=== PATIENT | male | born 1975 | race Caucasian/White ===

== ENCOUNTER 2016-04-24 16:15 | Outpatient (CLI) | payer BC ==
[2016-04-24 17:22] LABS: #Basophils 0.1 thou/uL (0.0-0.2); #Eosinphils 0.4 thou/uL (0.0-0.7); #Monocytes 0.7 thou/uL (0.11-0.59); #Neutrophils 4.9 thou/uL (1.40-6.50); %Eosinophils 5.9 % (0.0-10.0); %Monocytes 10.3 % (0.0-10.0); Hematocrit 44.1 % (42.0-52.0); Mean Platelet Volume 9.4 fL (7.4-10.4); Red Blood Cell (RBC) Count 4.89 mill/uL (4.70-6.10); White Blood Cell (WBC) Count 7.1 thou/uL (4.8-10.8)
[2016-04-24 17:23] LABS: Prothrombin Time 17.8 SEC (12.0-14.7)
[2016-04-24 18:29] LABS: ALT (SGPT) 22 U/L (0-55); AST (SGOT) 20 U/L (5-34); Alkaline Phosphatase 68 U/L (40-150); Anion Gap 15 mmol/L (10-20); BUN (Urea Nitrogen) 14 mg/dL (8.9-20.6); Bilirubin, Total 0.9 mg/dL (0.2-1.2); Calc. Creatinine Clearance 0 mL/min (70-130); Calcium 9.3 mg/dL (7.8-10.44); Carbon Dioxide 26 mmol/L (22-29); Chloride 105 mmol/L (98-107); Estimated GFR-MDRD 89; Globulin 2.3 g/dL (2.4-3.5); LDL Cholesterol, Calculated 95 mg/dL; Protein, Total 6.5 g/dL (6.0-8.3)
[2016-04-24 21:04] LABS: Hemoglobin A1c 5.7 % (4.0-6.0)
== END 2016-04-24 16:16 | disposition home or self-care (01) ==
LOC: HPCALD 16:15
PROVIDERS: ATTEND Family Medicine
DX: E11.9 Type 2 diabetes mellitus without complications (principal); I10 Essential (primary) hypertension; Z13.6 Encounter for screening for cardiovascular disorders; D68.59 Other primary thrombophilia
CPT/HCPCS: 36415; 80053; 80061; 83036; 85025; 85610

== ENCOUNTER 2017-08-15 14:59 | Emergency (ER) | payer BC ==
[2017-08-15 16:17] LABS: ALT (SGPT) 31 U/L (8-55); AST (SGOT) 24 U/L (5-34); Albumin 4.6 g/dL (3.5-5.0); Alkaline Phosphatase 74 U/L (40-150); Anion Gap 18 mmol/L (10-20); BUN (Urea Nitrogen) 19 mg/dL (8.9-20.6); Bilirubin, Total 0.6 mg/dL (0.2-1.2); Calc. Creatinine Clearance 0 mL/min (70-130); Calcium 9.8 mg/dL (7.8-10.44); Carbon Dioxide 22 mmol/L (22-29); Chloride 106 mmol/L (98-107); Estimated GFR-MDRD 58; Globulin 2.7 g/dL (2.4-3.5); Glucose 82 mg/dL (70-105); Potassium 4.5 mmol/L (3.5-5.1); Protein, Total 7.3 g/dL (6.0-8.3); Sodium 141 mmol/L (136-145)
[2017-08-15 16:18] LABS: CKMB 2.4 ng/mL (0-6.6); Troponin I Less than 0.010 ng/mL (< 0.028)
[2017-08-15 16:35] LABS: #Basophils 0.2 thou/uL (0.0-0.2); #Eosinphils 0.3 thou/uL (0.0-0.7); #Lymphocytes 1.7 thou/uL (1.20-3.40); #Monocytes 0.9 thou/uL (0.11-0.59); %Basophils 1.6 % (0.0-1.0); %Eosinophils 3.3 % (0.0-10.0); %Lymphocytes 16.7 % (21.0-51.0); %Monocytes 9.3 % (0.0-10.0); %Neutrophils 69.1 % (42.0-75.0); Hemoglobin 15.8 g/dL (14.0-18.0); Mean Corpuscular HGB CONC 37.1 g/dL (32.0-36.0); Mean Corpuscular Hemoglobin 31.1 pg (27.0-31.0); Mean Corpuscular Volume 83.6 fl (80.0-94.0); Mean Platelet Volume 10.2 fL (7.4-10.4); Platelet Count 211 thou/uL (130-400); RBC Distribution Width 11.4 % (11.5-14.5); White Blood Cell (WBC) Count 10.1 thou/uL (4.8-10.8)
[2017-08-15 16:39] LABS: MDiff Complete? YES
--- NOTE | 2017-08-15 17:03 | RAD ---
CHEST TWO VIEWS: 08/15/2017 COMPARISON: 01/20/2014 FINDINGS: The heart is normal in size, and the lungs are clear. There has been no adverse change since the study. Slight retrocardiac streaking is probably just superimposition of vessels, as I see n o infiltrative changes on the PA view. The trachea is midline. IMPRESSION: No acute thoracic findings. POS: HOME
[2017-08-15 18:17] LABS: Troponin I Less than 0.010 ng/mL (< 0.028)
== END 2017-08-15 18:35 | disposition home or self-care (01) ==
LOC: BURERS 14:59
DX: R51 Headache (principal); E11.9 Type 2 diabetes mellitus without complications; G43.909 Migraine, unspecified, not intractable, without status migrainosus; Z79.84 Long term (current) use of oral hypoglycemic drugs; Z79.899 Other long term (current) drug therapy
CPT/HCPCS: 36416; 71046; 80053; 82553; 84484; 85025; 85379; 93005; 36415-59